=== PATIENT | female | born 1960 | race African-American/Black ===

== ENCOUNTER 2018-01-26 21:42 | Observation (INO) | payer OTHER ==
[~2018-01-26] VITALS: Ht 170.2 cm; Wt 85.7 kg
[2018-01-26 21:49] VITALS: Ht 170.2 cm; Wt 85.7 kg
[2018-01-26 22:29] LABS: BASOPHIL % 0.6 % (0-2); PLATELET COUNT 178 x10^3mcL (130-400); RED CELL DISTRIBUTION WIDTH 13.4 % (11.5-14.5)
[2018-01-26 22:39] LABS: CALCIUM 8.4 mg/dL (8.5-10.1); CARBON DIOXIDE 24.2 mmol/L (21-32); CHLORIDE SERUM 104 mmol/L (98-107); CREATININE SERUM 0.9 mg/dL (0.6-1.0); GFR1 > 60 mL/min; GLUCOSE SERUM 96 mg/dL (74-106); POTASSIUM SERUM 3.6 mmol/L (3.5-5.1); SODIUM SERUM 139 mmol/L (136-145)
[2018-01-26 22:42] LABS: ALBUMIN 3.6 g/dL (3.4-5.0); ALKALINE PHOSPHATASE 84 U/L (46-116); ALT/SGPT 22 U/L (14-59); AST/SGOT 21 U/L (15-37); BILIRUBIN TOTAL 0.6 mg/dL (0.20-1.00); LIPASE 151 IU/L (73-393)
[2018-01-27 00:20] VITALS: BP 135/88
[2018-01-27 02:00] LABS: FREE T4 1.03 ng/dL (0.76-1.46); FREE THYROXINE INDEX 2.9 ug/dL (1.4-4.5); T4(THYROXINE) 8.5 ug/dL (4.7-13.3)
[2018-01-27 02:06] LABS: T3 TOTAL 1.06 ng/mL
[2018-01-27 02:20] LABS: CHOLESTEROL/HDL RATIO 3.4; MAGNESIUM 2.2 mg/dL (1.8-2.4); PHOSPHOROUS 3.3 mg/dL (2.5-4.9)
[2018-01-27 05:58] VITALS: BP 125/73
[2018-01-27 09:01] LABS: microscopic required? NO
[2018-01-27 09:08] LABS: UA SPECIFIC GRAVITY <=1.005 (1.005-1.035); urine erythrocyte NEGATIVE (NEGATIVE)
[2018-01-27 09:15] VITALS: BP 109/74
[2018-01-27 09:24] LABS: AMPHETAMINE QUAL UR NONE DETECTED (NEG <=1000)
[2018-01-27 13:10] VITALS: BP 115/73
[2018-01-27 15:10] VITALS: BP 115/73
== END 2018-01-27 15:45 | disposition home or self-care (01) | DRG 206 ==
LOC: ED 21:42 → MU 23:15 → DU 23:15 → MU 01-27 00:19 → DU 01-27 01:08
PROVIDERS: Emergency Medicine; Family Medicine
DX: M94.0 Chondrocostal junction syndrome [Tietze] (principal); I10 Essential (primary) hypertension; E83.51 Hypocalcemia; Z68.28 Body mass index [BMI] 28.0-28.9, adult
CPT/HCPCS: 83880; 84439; G0378; J7030; Q0092